=== PATIENT | female | born 1960 | race Caucasian/White ===

== ENCOUNTER → 2022-03-17 | Outpatient (CLI) | payer OTHER ==
[~2022-03-17] MED LIST: MUPI2TO TOP; [UNRECOGNIZED DRUG - OTHER]
== END ==
LOC: PLD 07:54 → LAB SHORT 07:54
DX: R21 Rash and other nonspecific skin eruption (principal)
CPT/HCPCS: 88312

== ENCOUNTER 2023-04-30 23:35 | Inpatient (IN) | payer OTHER ==
[~2023-04-30] VITALS: Ht 154.9 cm; Wt 46.0 kg
[2023-05-01 00:02] LABS: Hematocrit 38.3 % (33.0-51.0); Hemoglobin 13.1 g/dL (11.5-16.0); Mean Corpuscular HGB 31.4 pg (26.0-34.0); Mean Corpuscular HGB Conc 34.2 g/dL (31.5-36.5); Mean Corpuscular Volume 92 fL (80-100); Mean Platelet Volume 9.9 fL (9.1-12.4); Platelet Count 427 K/mm3 (150-400); RDW Coefficient Variation 12.9 % (11.7-14.2); RDW Standard Deviation 43.8 fL (35.1-46.3); Red Blood Cell Count 4.17 M/mm3 (3.80-5.20); White Blood Cell Count 9.49 K/mm3 (4.00-11.30)
[2023-05-01 00:07] LABS: Base Excess Venous 4.8 mmol/L; Bicarbonate Venous 27.1 mmol/L (24.0-30.0); pH Blood Venous 7.36 (7.34-7.37)
[2023-05-01 00:22] LABS: Albumin, Blood 2.8 g/dL (3.4-5.0); Albumin/Globulin Ratio 0.6 (0.8-1.8); Bun/Creatinine Ratio 22.8 (12.0-20.0); Calcium, Blood 9.3 mg/dL (8.5-10.1); Creatinine, Blood 0.44 mg/dL (0.40-1.00); Globulin, Blood 4.9 g/dL (2.2-4.0); Potassium, Blood 3.8 mmol/L (3.5-5.5); Total Protein, Blood 7.7 g/dL (6.4-8.2)
[2023-05-01 00:48] LABS: Influenza A, PCR NEGATIVE (NEGATIVE); Influenza B, PCR NEGATIVE (NEGATIVE); Resp Syncytial Virus, PCR NEGATIVE (NEGATIVE); SARS-Cov-2 (COVID-19) PCR, MMC NEGATIVE (NEGATIVE)
[2023-05-01 00:54] LABS: BAND PERCENT MAN 19 % (0-8); BASOPHILS PERCENT MAN 0 % (0-2); EOSINOPHILS PERCENT MAN 0 % (0-6); LYMPHOCYTES ABSOLUTE MAN 0.85 K/mm3 (0.84-5.20); LYMPHOCYTES PERCENT MAN 9 % (21-46); MONOCYTES ABSOLUTE MAN 1.99 K/mm3 (0.16-1.47); MONOCYTES PERCENT MAN 21 % (4-13); MYELOCYTE ABSOLUTE MAN 0.47 K/mm3 (0.00-0.00); MYELOCYTE PERCENT MAN 5 % (0-0); NEUTROPHILS ABSOLUTE MAN 6.16 K/mm3 (1.96-9.15); SEG NEUTROPHILS PERCENT MAN 46 % (41-73); TOTAL CELLS COUNTED 100
[2023-05-01] MEDS ORDERED: ALBU90OI INH (05:17)
[2023-05-01 05:27] VITALS: BP 171/89
--- NOTE | 2023-05-01 06:57 | NUR ---
PATIENT CAME IN PER WHEELCHAIR WITH ONGOING IV FLUIDS ON HER LEFT FA, SKIN CHECKED DONE WITH ESTEBAN E[facility] RN. ON SBA X1. ON RA. TELE WAS REMOVED THERE WAS NO ORDER IN PLACE. NEEDS ATTENDED. CALL LIGHT WITHIN PATIENT'S REACH. WILL CONTINUE TO MONITOR.
[2023-05-01 07:52] VITALS: BP 141/88
--- NOTE | 2023-05-01 16:35 | NUR ---
SHIFT SUMMARY: PATIENT A/OX4. PATIENT IS PLEASANT, COOPERATIVE c CARE, USES CALL LIGHT APPROPRIATELY AND ABLE TO MAKE NEEDS KNOWN. PATIENT REPORTS SOB c AMBULATION TO BATHROOM AND O2 DROPPED TO MID 80'S. PATIENT PLACED ON 2L O2 VIA NC c SPO2 ABOVE 90%. PATIENT RECEIVED BREATHING TX ADMINISTERRED BY RT. PATIENT RECEIVED IV/ORAL ABX AND SCHEDULED MEDS PER EMAR. PATIENT DENIES CP/PRESSURE, N/V AND DIZZINESS. PATIENT HAD SHOWER AND LINEN CHANGED TODAY. PATIENT IS CONTINENCE OF BOWELS/BLADDER AND AMBULATES TO BATHROOM T/O SHIFT. PATIENT HAS NO COMPLAINTS OR DENIES NEW CONCERNED THIS SHIFT. PIV TO R FOREARM SALINE LOCKED. CALL LIGHT IN REACH.
[2023-05-01 16:41] VITALS: BP 150/97
[2023-05-01 19:43] VITALS: BP 156/93
[2023-05-02 02:42] VITALS: BP 105/93
--- NOTE | 2023-05-02 04:46 | NUR ---
SHIFT SUMMARY PT A&O X4, CALM AND COOPERATIVE WITH CARE. PT USING BSC WITH 1P ASSIST DUE TO SOB WITH AMBULATION. CURRENTLY ON RA. PT DENIES ANY CP OR PRESSURE AT THIS TIME. PT CONTINENT OF BOWEL/BLADDER. RECEIVED RT TREATMENTS AND SCHEDULED MEDICATIONS--SEE EMAR. BED KEPT IN LOWEST POSITION WITH CALL LIGHT WITHIN REACH. WILL CONTINUE TO MONITOR.
[2023-05-02 05:44] LABS: Hematocrit 37.3 % (33.0-51.0); Hemoglobin 12.8 g/dL (11.5-16.0); Mean Corpuscular HGB 31.5 pg (26.0-34.0); Mean Corpuscular HGB Conc 34.3 g/dL (31.5-36.5); Mean Corpuscular Volume 92 fL (80-100); Mean Platelet Volume 10.2 fL (9.1-12.4); Platelet Count 493 K/mm3 (150-400); RDW Coefficient Variation 13.2 % (11.7-14.2); RDW Standard Deviation 44.4 fL (35.1-46.3); Red Blood Cell Count 4.06 M/mm3 (3.80-5.20); White Blood Cell Count 15.83 K/mm3 (4.00-11.30)
[2023-05-02 06:22] LABS: Albumin, Blood 2.5 g/dL (3.4-5.0); Albumin/Globulin Ratio 0.5 (0.8-1.8); Bilirubin, Total 0.3 mg/dL (0.1-1.0); Bun/Creatinine Ratio 35.9 (12.0-20.0); Calcium, Blood 9.7 mg/dL (8.5-10.1); Creatinine, Blood 0.47 mg/dL (0.40-1.00); Globulin, Blood 4.7 g/dL (2.2-4.0); Potassium, Blood 4.2 mmol/L (3.5-5.5); Total Protein, Blood 7.2 g/dL (6.4-8.2)
[2023-05-02 07:05] LABS: BAND PERCENT MAN 9 % (0-8); BASOPHILS PERCENT MAN 0 % (0-2); EOSINOPHILS PERCENT MAN 0 % (0-6); LYMPHOCYTES ABSOLUTE MAN 0.47 K/mm3 (0.84-5.20); LYMPHOCYTES PERCENT MAN 3 % (21-46); METAMYELOCYTE ABSOLUTE MAN 0.31 K/mm3 (0.00-0.00); METAMYELOCYTE PERCENT MAN 2 % (0-0); MONOCYTES ABSOLUTE MAN 1.26 K/mm3 (0.16-1.47); MONOCYTES PERCENT MAN 8 % (4-13); MYELOCYTE ABSOLUTE MAN 0.94 K/mm3 (0.00-0.00); MYELOCYTE PERCENT MAN 6 % (0-0); NEUTROPHILS ABSOLUTE MAN 12.82 K/mm3 (1.96-9.15); SEG NEUTROPHILS PERCENT MAN 72 % (41-73); TOTAL CELLS COUNTED 100
[2023-05-02 07:56] VITALS: BP 158/95
--- NOTE | 2023-05-02 16:07 | NUR ---
DAYSHIFT SUMMARY Patient alert & oriented x4, continues to be short of breath. Sitting in bed, tripoding. 1.5lpm NC O2, neb treatments scheduled. Patient using flutter valve, frequent productive cough. Patient OOB with staff supervision for safety. IV ABX and solumedrol administred. Vitals stable. Will continue plan of care.
[2023-05-02 17:01] VITALS: BP 163/88
[2023-05-02 20:02] VITALS: BP 134/84
[2023-05-03 03:57] VITALS: BP 163/99
--- NOTE | 2023-05-03 04:57 | NUR ---
SHIFT SUMMARY PT A&O X4, COOPERATIVE WITH CARE. PT HAS HACKING, PRODUCTIVE COUGH. COMPLAINS OF BEING SOB. CURRENTLY ON 1.5 L O2 WITH SATS AT 90-92%. EDUCATED PT ON USING FLUTTER VALVE. RT TREATMENTS AND SOLU-MEDROL GIVEN ORDERED. PT IS CONTINENT AND IS 1P ASSIST TO BSC. PT CALLS APPROPRAITELY FOR NEEDS. BED KEPT IN LOWEST POSITION WITH CALL LIGHT WITHIN REACH. WILL CONTINUE TO MONITOR UNTIL END OF SHIFT.
[2023-05-03 05:52] LABS: Hematocrit 39.9 % (33.0-51.0); Hemoglobin 13.2 g/dL (11.5-16.0); Mean Corpuscular HGB 30.8 pg (26.0-34.0); Mean Corpuscular HGB Conc 33.1 g/dL (31.5-36.5); Mean Corpuscular Volume 93 fL (80-100); Mean Platelet Volume 9.5 fL (9.1-12.4); Platelet Count 529 K/mm3 (150-400); RDW Coefficient Variation 13.5 % (11.7-14.2); RDW Standard Deviation 45.9 fL (35.1-46.3); Red Blood Cell Count 4.29 M/mm3 (3.80-5.20); White Blood Cell Count 17.02 K/mm3 (4.00-11.30)
[2023-05-03 06:26] LABS: BAND PERCENT MAN 9 % (0-8); BASOPHILS PERCENT MAN 0 % (0-2); EOSINOPHILS PERCENT MAN 0 % (0-6); LYMPHOCYTES ABSOLUTE MAN 0.68 K/mm3 (0.84-5.20); LYMPHOCYTES PERCENT MAN 4 % (21-46); METAMYELOCYTE ABSOLUTE MAN 0.17 K/mm3 (0.00-0.00); METAMYELOCYTE PERCENT MAN 1 % (0-0); MONOCYTES ABSOLUTE MAN 0.51 K/mm3 (0.16-1.47); MONOCYTES PERCENT MAN 3 % (4-13); MYELOCYTE ABSOLUTE MAN 1.02 K/mm3 (0.00-0.00); MYELOCYTE PERCENT MAN 6 % (0-0); NEUTROPHILS ABSOLUTE MAN 14.63 K/mm3 (1.96-9.15); SEG NEUTROPHILS PERCENT MAN 77 % (41-73); TOTAL CELLS COUNTED 100
[2023-05-03 07:00] LABS: Albumin, Blood 2.7 g/dL (3.4-5.0); Albumin/Globulin Ratio 0.6 (0.8-1.8); Bilirubin, Total 0.3 mg/dL (0.1-1.0); Bun/Creatinine Ratio 31.5 (12.0-20.0); Calcium, Blood 9.4 mg/dL (8.5-10.1); Creatinine, Blood 0.45 mg/dL (0.40-1.00); Globulin, Blood 4.6 g/dL (2.2-4.0); Potassium, Blood 4.8 mmol/L (3.5-5.5); Total Protein, Blood 7.3 g/dL (6.4-8.2)
[2023-05-03 08:02] VITALS: BP 158/100
[2023-05-03 16:50] VITALS: BP 154/90
--- NOTE | 2023-05-03 18:36 | NUR ---
SHIFT SUMMARY: PT A&O X4. PLEASANT AND COOPERATIVE WITH CARE. PT STATES SHE IS FEELING MUCH BETTER THIS SHIFT THAN PREVIOUS. STATES SHE IS LIKELY GOING HOME TOMORROW. DAUGHTER AT BEDSIDE STATING SHE HAS QUESTIONS FOR HOSPITALIST PRIOR TO D/C. DAUGHTER LIVES OUT OF TOWN AND HAS TO LEAVE TOWN TOMORROW. PT REMAINS ON 1.5L VIA NC MAINTAINING SATS >92%. SB ASSIST TO BSC. PT STATED THIS AM SHE FEELS WEAK WHEN TRANSFERRING. PT NORA DISCUSSED WITH RESIDENT THIS AM. EYE DISCHARGE GETTING BETTER PER PT. CALL LIGHT IN REACH. BED IN LOWEST POSITION. NO NEEDS AT THIS TIME.
[2023-05-03 19:39] VITALS: BP 162/93
[2023-05-04 04:09] VITALS: BP 163/97
--- NOTE | 2023-05-04 04:48 | NUR ---
SHIFT SUMMARY PT A&O X4, CALM AND COOPERATIVE WITH CARE PROVIDED. PT STATES SHE IS FEELING BETTER THIS AM. CONTINUES TO HAVE SOB WITH EXERSION. CURRENTLY ON 1.5L O2 VIA NC, SATS AT 94%. DAUGHTER WOULD LIKE TO TALK TO HOSPITALIST REGARDING DISCHAGE CONCERNS BEFORE SHE GOES BACK TO [place] TODAY. PT STATES EYE DISCHARGE IS IMPROVED. BED IN LOWEST POSITION WITH CALL LIGHT WITHIN REACH. WILL CONTINUE TO MONITOR.
[2023-05-04 05:05] LABS: Hematocrit 40.9 % (33.0-51.0); Hemoglobin 13.7 g/dL (11.5-16.0); Mean Corpuscular HGB 31.4 pg (26.0-34.0); Mean Corpuscular HGB Conc 33.5 g/dL (31.5-36.5); Mean Corpuscular Volume 94 fL (80-100); Mean Platelet Volume 9.4 fL (9.1-12.4); Platelet Count 620 K/mm3 (150-400); RDW Coefficient Variation 13.7 % (11.7-14.2); RDW Standard Deviation 47.3 fL (35.1-46.3); Red Blood Cell Count 4.37 M/mm3 (3.80-5.20); White Blood Cell Count 22.22 K/mm3 (4.00-11.30)
[2023-05-04 05:57] LABS: Albumin, Blood 2.9 g/dL (3.4-5.0); Albumin/Globulin Ratio 0.6 (0.8-1.8); Bilirubin, Total 0.3 mg/dL (0.1-1.0); Bun/Creatinine Ratio 40.9 (12.0-20.0); Calcium, Blood 9.7 mg/dL (8.5-10.1); Creatinine, Blood 0.39 mg/dL (0.40-1.00); Globulin, Blood 4.5 g/dL (2.2-4.0); Potassium, Blood 4.8 mmol/L (3.5-5.5); Total Protein, Blood 7.4 g/dL (6.4-8.2)
[2023-05-04 06:24] LABS: BAND PERCENT MAN 3 % (0-8); BASOPHILS PERCENT MAN 0 % (0-2); EOSINOPHILS PERCENT MAN 0 % (0-6); LYMPHOCYTES ABSOLUTE MAN 0.22 K/mm3 (0.84-5.20); LYMPHOCYTES PERCENT MAN 1 % (21-46); METAMYELOCYTE ABSOLUTE MAN 0.22 K/mm3 (0.00-0.00); METAMYELOCYTE PERCENT MAN 1 % (0-0); MONOCYTES ABSOLUTE MAN 0.88 K/mm3 (0.16-1.47); MONOCYTES PERCENT MAN 4 % (4-13); MYELOCYTE ABSOLUTE MAN 1.33 K/mm3 (0.00-0.00); MYELOCYTE PERCENT MAN 6 % (0-0); NEUTROPHILS ABSOLUTE MAN 19.55 K/mm3 (1.96-9.15); SEG NEUTROPHILS PERCENT MAN 85 % (41-73); TOTAL CELLS COUNTED 100
[2023-05-04 07:51] VITALS: BP 182/98
--- NOTE | 2023-05-04 16:27 | NUR ---
Met with pt and her daughter at their request. The patient states she would like to complete an advance directive naming her daughter as her POA. The pt's daughter works in the medical field, and states she is familiar with the paperwork, and plans to help her mom fill it out.
--- NOTE | 2023-05-04 16:36 | NUR ---
SHIFT SUMMARY PT HAS BEEN ON ROOM AIR THIS AFTERNOON, SHE DENIES SHORTNESS OF BREATH. MOVING WELL. TOLERATING DIET WELL. [id number]. MAKES NEEDS MET. CONTINUES TO HAVE PRODUCTIVE COUGH. MOVING SOME PHLEGM WITH COUGHING.
[2023-05-04 16:52] VITALS: BP 168/97
[2023-05-04 19:59] VITALS: BP 161/100
[2023-05-05 04:33] VITALS: BP 143/101
[2023-05-05 05:11] LABS: Hematocrit 41.6 % (33.0-51.0); Hemoglobin 13.9 g/dL (11.5-16.0); Mean Corpuscular HGB Conc 33.4 g/dL (31.5-36.5); Mean Corpuscular Volume 93 fL (80-100); Mean Platelet Volume 9.3 fL (9.1-12.4); Platelet Count 615 K/mm3 (150-400); RDW Coefficient Variation 13.8 % (11.7-14.2); RDW Standard Deviation 47.3 fL (35.1-46.3); Red Blood Cell Count 4.48 M/mm3 (3.80-5.20); White Blood Cell Count 22.59 K/mm3 (4.00-11.30)
[2023-05-05 05:39] LABS: Albumin/Globulin Ratio 0.7 (0.8-1.8); Bilirubin, Total 0.3 mg/dL (0.1-1.0); Bun/Creatinine Ratio 36.3 (12.0-20.0); Calcium, Blood 9.7 mg/dL (8.5-10.1); Creatinine, Blood 0.41 mg/dL (0.40-1.00); Globulin, Blood 4.3 g/dL (2.2-4.0); Potassium, Blood 4.7 mmol/L (3.5-5.5); Total Protein, Blood 7.3 g/dL (6.4-8.2)
--- NOTE | 2023-05-05 06:33 | NUR ---
Shift Summary Pt requested to remain on 1.5L O2 tonight for comfort. She has a productive cough and strong cough reflex to clear her lungs. Pt states her scheduled IV steriods keep her awake util 0000. Slept well after midnight. AOx4, independent in the room.
[2023-05-05 07:49] LABS: BAND PERCENT MAN 6 % (0-8); BASOPHILS PERCENT MAN 0 % (0-2); EOSINOPHILS PERCENT MAN 0 % (0-6); LYMPHOCYTES ABSOLUTE MAN 2.48 K/mm3 (0.84-5.20); LYMPHOCYTES PERCENT MAN 11 % (21-46); MONOCYTES PERCENT MAN 8 % (4-13); NEUTROPHILS ABSOLUTE MAN 16.94 K/mm3 (1.96-9.15); SEG NEUTROPHILS PERCENT MAN 69 % (41-73); TOTAL CELLS COUNTED 100
[2023-05-05 07:50] LABS: MYELOCYTE ABSOLUTE MAN 1.35 K/mm3 (0.00-0.00); MYELOCYTE PERCENT MAN 6 % (0-0)
[2023-05-05 09:38] VITALS: BP 122/87
[2023-05-05] MEDS ORDERED: LOSA25 PO (12:22)
[2023-05-05] MEDS ORDERED: PRED20 PO (12:23)
== END 2023-05-05 13:18 | disposition home or self-care (01) | DRG 193 ==
LOC: ER 23:35 → PCU 23:36 → MEDS 05-01 05:20 → ENPENDDIS 05-05 10:46 → MEDS 05-05 13:18
PROVIDERS: Emergency Medicine; Family Medicine; Student in an Organized Health Care Education/Training Program; ADMIT Internal Medicine
DX: J15.9 Unspecified bacterial pneumonia (principal); J96.01 Acute respiratory failure with hypoxia; J96.02 Acute respiratory failure with hypercapnia; J44.0 Chronic obstructive pulmonary disease with (acute) lower respiratory infection; J44.1 Chronic obstructive pulmonary disease with (acute) exacerbation; J45.901 Unspecified asthma with (acute) exacerbation; Z68.1 Body mass index [BMI] 19.9 or less, adult; I10 Essential (primary) hypertension; F17.210 Nicotine dependence, cigarettes, uncomplicated; D75.839 Thrombocytosis, unspecified; R59.0 Localized enlarged lymph nodes; H10.33 Unspecified acute conjunctivitis, bilateral; R63.4 Abnormal weight loss; Z85.3 Personal history of malignant neoplasm of breast; Z90.12 Acquired absence of left breast and nipple; Z11.52 Encounter for screening for COVID-19; Z28.21 Immunization not carried out because of patient refusal
CPT/HCPCS: 0241U; 36415; 71045; 80053; 82803; 84145; 84443; 85025; 93005; 93010; 94640; 94644; 94664; 94760; 94761; 96365; 96372; 96375; 96376; 99285-25; A9270; G0378; J0696; J1650; J2930; J7030